=== PATIENT | female | born 1980 | race Caucasian/White ===

== ENCOUNTER 2017-11-18 07:25 | Outpatient (CLI) | payer BC ==
--- NOTE | 2017-11-18 09:42 | CT ---
CT ABDOMEN AND PELVIS WITH IV AND ORAL CONTRAST: HISTORY: Renal mass. Followup. COMPARISON: Prior studies from [facility] dated 10/30/16 and 05/30/09. FINDINGS: The lung bases are clear. The liver, spleen, kidneys, and pancreas are within normal limits. Lobula linnea low-density enlargement of the left adrenal gland is unchanged from CT exams dating back to . Right adrenal gland is within normal limits. No enlarged lymph nodes or free fluid are visible. The urinary bladder has a normal appearance. 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 No new abnormalities are demonstrated. POS: [facility]
--- NOTE | 2017-11-18 14:36 | MRI ---
CERVICAL SPINE MRI WITHOUT CONTRAST: DATE: 11/18/17. COMPARISON: None. HISTORY: Cervical herniated disk. TECHNIQUE: Multiplanar, multisequence MR imaging of the cervical spine is provided without contrast. FINDINGS: The sagittal STIR imaging demonstrates no focal area of osseous marrow edema. Cervicovertebral body height and alignment appears within normal limits. Craniocervical junction, atlantoaxial interspace, and cervicothoracic junction appear unremarkable. C2-3: Intervertebral disk height and signal intensities within normal limits with no significant roel tral canal or neural foraminal stenosis. C3-4: Intervertebral disk height and signal intensity is within normal limits with no significant ce ntral canal or neural foraminal stenosis. C4-5: Mild left-sided facet and uncovertebral osteophyte formation. Intervertebral disk height and signal intensity appears within normal limits. No significant central canal or neural foraminal sten osis. C5-6: No significant central canal or neural foraminal stenosis. C6-7: Intervertebral disk height and signal intensity appears grossly unremarkable. No significant central canal or neural foraminal stenosis. C7-T1: Intervertebral disk height and signal intensity appears within normal limits with no signific ant central canal or neural foraminal stenosis. No focal area of signal abnormality is identified within the cervical cord. Regional bone marrow signal intensity appears within normal limits. IMPRESSION: No significant central canal or neural foraminal stenosis noted within the cervical spine. POS: [facility]
[2017-11-18] MEDS ORDERED: Iopamidol 370 76% 100 ML VIAL ONE (17:01)
== END 2017-11-18 07:26 | disposition home or self-care (01) ==
LOC: CT 07:25
PROVIDERS: ATTEND Family Medicine
DX: D35.02 Benign neoplasm of left adrenal gland (principal); M50.20 Other cervical disc displacement, unspecified cervical region
CPT/HCPCS: 72141; 74177

== ENCOUNTER 2019-01-14 12:53 | Outpatient (CLI) | payer OTHER | END 2019-01-14 12:54 | disposition home or self-care (01) | LOC: BICMAMMO 12:53 | PROVIDERS: ATTEND Family Medicine | DX: Z12.31 Encounter for screening mammogram for malignant neoplasm of breast (principal); N63.10 Unspecified lump in the right breast, unspecified quadrant | CPT/HCPCS: 77063; 77067 ==

== ENCOUNTER 2019-01-21 13:46 | Outpatient (CLI) | payer OTHER, BC ==
--- NOTE | 2019-01-21 16:10 | ULT ---
RIGHT BREAST ULTRASOUND: Date: 01/21/19 COMPARISON: Mammograms dated 01/21/19, 01/14/19, and 12/10/12. HISTORY: Two well-circumscribed masses seen on screening mammography. One was in the subareolar region of the right breast and one was in the upper outer aspect of the right breast. TECHNIQUE: Multiplanar Li scale and color Doppler images were obtained in a targeted right breast ultrasound. FINDINGS: In the retroareolar region of the right breast, there is an 11 mm, well circumscribed, hypoechoic mas s without shadowing. This corresponds to the subareolar mammographic abnormality. In the 10 o'clock position of the right breast, approximately 4.0 cm from the nipple, there is a well circumscribed, hypoechoic, nonshadowing mass measuring 6.0 mm in greatest dimension. This also corre sponds to the abnormality in the upper outer aspect of the right breast on mammography. No suspicious shadowing is seen. IMPRESSION: BIRADS Category 3 - Probably benign findings. A 6 month follow-up mammogram and ultrasound of the rig ht breast is recommended to ensure stability of these two well circumscribed masses. POS: [facility]
== END 2019-01-21 13:47 | disposition home or self-care (01) ==
LOC: BICMAMMO 13:46
PROVIDERS: ATTEND Family Medicine
DX: N63.11 Unspecified lump in the right breast, upper outer quadrant (principal)
CPT/HCPCS: G0279

== ENCOUNTER 2021-05-30 19:30 | Outpatient (CLI) | payer BC | END 2021-05-30 19:31 | disposition home or self-care (01) | LOC: SLEEPLAB 19:30 | PROVIDERS: ATTEND Family Medicine | DX: G47.33 Obstructive sleep apnea (adult) (pediatric) (principal); R53.83 Other fatigue; E66.9 Obesity, unspecified; K21.9 Gastro-esophageal reflux disease without esophagitis; R06.83 Snoring; F41.9 Anxiety disorder, unspecified; G47.00 Insomnia, unspecified; I10 Essential (primary) hypertension; E11.9 Type 2 diabetes mellitus without complications | CPT/HCPCS: 95810 ==

== ENCOUNTER 2022-01-23 14:14 | Outpatient (CLI) | payer BC | END 2022-01-23 14:15 | disposition home or self-care (01) | LOC: BICMAMMO 14:14 | PROVIDERS: ATTEND Family Medicine | DX: Z12.31 Encounter for screening mammogram for malignant neoplasm of breast (principal) | CPT/HCPCS: 77063; 77067 ==

== ENCOUNTER 2022-03-26 12:45 | Outpatient (CLI) | payer BC | END 2022-03-26 12:46 | disposition home or self-care (01) | LOC: BICMAMMO 12:45 | PROVIDERS: ATTEND Family Medicine | DX: N63.20 Unspecified lump in the left breast, unspecified quadrant (principal) | CPT/HCPCS: G0279 ==

== ENCOUNTER 2022-05-23 14:24 | Outpatient (CLI) | payer BC | END 2022-05-23 14:25 | disposition home or self-care (01) | LOC: SCSRAD 14:24 | PROVIDERS: ATTEND Family Medicine | DX: M54.2 Cervicalgia (principal) | CPT/HCPCS: 72040 ==

== ENCOUNTER 2023-08-14 08:23 | Outpatient (CLI) | payer BC | END 2023-08-14 08:24 | disposition home or self-care (01) | LOC: MRI 08:23 | PROVIDERS: ATTEND Family Medicine | DX: M50.123 Cervical disc disorder at C6-C7 level with radiculopathy (principal) | CPT/HCPCS: 72141 ==

== ENCOUNTER 2023-09-04 07:41 | Outpatient (CLI) | payer BC ==
[2023-09-04] MEDS ORDERED: Iopamidol 370 76% 100 ML VIAL ONE (15:49)
== END 2023-09-04 07:42 | disposition home or self-care (01) ==
LOC: CT 07:41
PROVIDERS: ATTEND Family Medicine
DX: R51.9 Headache, unspecified (principal); Z82.49 Family history of ischemic heart disease and other diseases of the circulatory system
CPT/HCPCS: 70470; Q9967

== ENCOUNTER 2023-10-30 10:00 | Outpatient (CLI) | payer BC ==
[2023-10-30 12:11] LABS: Anion Gap 17 mmol/L (10-20); BUN (Urea Nitrogen) 12 mg/dL (7.0-18.7); Calc. Creatinine Clearance 0 mL/min (70-130); Calcium 8.6 mg/dL (7.8-10.44); Carbon Dioxide 19 mmol/L (22-29); Chloride 105 mmol/L (98-107); Estimated GFR 109; Glucose 134 mg/dL (70-105); Potassium 4.6 mmol/L (3.5-5.1); Sodium 136 mmol/L (136-145)
== END 2023-10-30 10:01 | disposition home or self-care (01) ==
LOC: LABBT 10:00
PROVIDERS: ATTEND Neurological Surgery
DX: Z01.818 Encounter for other preprocedural examination (principal); M54.12 Radiculopathy, cervical region
CPT/HCPCS: 80048; 93005; 93010

== ENCOUNTER 2023-11-06 05:46 | Day surgery (SDC) | payer BC ==
[2023-11-05 13:19] VITALS: BMI 47.9
[2023-11-06] MEDS ORDERED: Rocuronium Bromide 10 MG/ML (10ML VIAL) ONE ×2 (06:38→07:00)
[2023-11-06] MEDS ORDERED: Lidocaine 1% PF 5 ML VIAL ONE ×3 (06:38→07:51)
[2023-11-06] MEDS ORDERED: Ondansetron PF 4 MG/2 ML Vial ONE ×2 (06:38→08:13)
[2023-11-06] MEDS ORDERED: PHENYLEPHRINE-NS 100 MCG/ML 10 ML SYRINGE ONE ×2 (06:38→08:32)
[2023-11-06] MEDS ORDERED: Dexamethasone 20 MG/5 ML VIAL ONE ×2 (06:38→08:13)
[2023-11-06] MEDS ORDERED: PROPOFOL 200 MG/20 ML VIAL ONE (06:38)
[2023-11-06] MEDS ORDERED: Famotidine/PF 20 mg/2ml Vial ONE (06:39)
[2023-11-06] MEDS ORDERED: Scopolamine 1 mg/72 hour Patch ONE (06:39)
[2023-11-06] MEDS ORDERED: Thrombin 5000 UNITS/5 ML VIAL ONE (06:43)
[2023-11-06] MEDS ORDERED: Sodium Chloride 0.9% 0 ML ONE (06:50)
[2023-11-06] MEDS ORDERED: CEFAZOLIN 2 GM VIAL ONE (06:50)
[2023-11-06] MEDS ORDERED: LevoFLOXacin 500 mg/D5W 100 ML BAG ONE (06:55)
[2023-11-06] MEDS ORDERED: Clindamycin/D5W 900 mg/50 ml Premix Bag ONE (06:56)
[2023-11-06] MEDS ORDERED: Midazolam HCl 2 mg/2 ml Vial ONE (06:59)
[2023-11-06] MEDS ORDERED: fentaNYL PF 100 MCG/2 ML SYRINGE ONE ×3 (07:00→08:14)
[2023-11-06] MEDS ORDERED: PROPOFOL 0 ML ONE (07:00)
[2023-11-06] MEDS ORDERED: PROPOFOL 20 ML ONE ×2 (07:50→07:52)
[2023-11-06] MEDS ORDERED: SUGAMMADEX SODIUM 200 MG/2 ML VIAL ONE (08:42)
[2023-11-06] MEDS ORDERED: Lidocaine 2% PF 5 ML VIAL ONE (08:49)
[2023-11-06] MEDS ORDERED: Ondansetron HCl/PF 4 MG/2 ML Vial IVP PRN (08:49)
[2023-11-06] MEDS ORDERED: Promethazine HCl 25 MG/ML VIAL IM PRN (08:49)
[2023-11-06] MEDS ORDERED: fentaNYL 50 mcg/mL 1 mL Vial ONE (09:13)
[2023-11-06] MEDS ORDERED: Cyclobenzaprine 10 MG TAB ONE (10:22)
[2023-11-06] MEDS ORDERED: Ondansetron ODT 4 MG TAB ONE (11:02)
== END 2023-11-06 11:20 | disposition home or self-care (01) ==
LOC: SDC 05:46
PROVIDERS: ATTEND Neurological Surgery
PROC: 0RG10A0 Fusion of Cervical Vertebral Joint with Interbody Fusion Device, Anterior Approach, Anterior Column, Open Approach (ICD-10-PCS; principal; 2023-11-06)
DX: M50.123 Cervical disc disorder at C6-C7 level with radiculopathy (principal); E11.9 Type 2 diabetes mellitus without complications; E03.9 Hypothyroidism, unspecified; I10 Essential (primary) hypertension; Z87.59 Personal history of other complications of pregnancy, childbirth and the puerperium; Z90.49 Acquired absence of other specified parts of digestive tract; Z90.89 Acquired absence of other organs; Z88.0 Allergy status to penicillin; Z79.899 Other long term (current) drug therapy
CPT/HCPCS: C1713; C1889; J1100; J1956; J2001; J2250; J2405; J2704; J3010; J3490; Q0162; S0028

== ENCOUNTER 2024-05-11 10:06 | Outpatient (CLI) | payer BC | END 2024-05-11 10:07 | disposition home or self-care (01) | LOC: BICMAMMO 10:06 | PROVIDERS: ATTEND Family Medicine | DX: Z12.31 Encounter for screening mammogram for malignant neoplasm of breast (principal) | CPT/HCPCS: 77063; 77067 ==

== ENCOUNTER 2025-11-02 12:55 | Outpatient (CLI) | payer BC | END 2025-11-02 12:56 | disposition home or self-care (01) | LOC: BICMAMMO 12:55 | PROVIDERS: ATTEND Family Medicine | DX: Z12.31 Encounter for screening mammogram for malignant neoplasm of breast (principal) | CPT/HCPCS: 77063; 77067 ==